=== PATIENT | female | born 1950 | race Caucasian/White ===

== ENCOUNTER 2018-07-14 03:55 | Inpatient (IN) | payer MEDICARE, OTHER ==
[2018-07-14] VITALS (7 sets, daily range): BP systolic 107–143; BP diastolic 59–86
[~2018-07-14] VITALS: Ht 175.3 cm; Wt 71.6 kg
[2018-07-14] MEDS ORDERED: ALBU18HF2 INH (04:18)
[2018-07-14] MEDS ORDERED: AMOX-580 PO (04:18)
[2018-07-14 04:29] LABS: BASOPHILS # (AUTO) 0.1 X10'3 (0-0.2); BASOPHILS % (AUTO) 0.7 % (0-1); EOSINOPHILS # (AUTO) 0.2 X10'3 (0-0.9); EOSINOPHILS % (AUTO) 1.5 % (0-6); HEMATOCRIT 45.3 % (35.0-45.0); HEMOGLOBIN 15.7 g/dl (12.0-16.0); LYMPHOCYTES # (AUTO) 1.5 X10'3 (1.1-4.8); LYMPHOCYTES % (AUTO) 14.9 % (21-51); MEAN CORPUSCULAR HEMOGLOBIN 29.5 PG (27.0-31.0); MEAN CORPUSCULAR HGB CONC 34.7 % (33.0-36.5); MEAN CORPUSCULAR VOLUME 84.9 FL (78-98); MEAN PLATELET VOLUME 12.2 FL (7.4-10.4); MONOCYTES # (AUTO) 0.5 X10'3 (0-0.9); MONOCYTES % (AUTO) 4.5 % (2-12); NEUTROPHILS # (AUTO) 8.1 X10'3 (1.8-7.7); NEUTROPHILS % (AUTO) 78.4 % (42-75); PLATELET COUNT 201 X10'3 (140-440); RED BLOOD COUNT 5.33 X10'6 (4.20-5.60); RED CELL DISTRIBUTION WIDTH 13.1 % (11.5-14.5); WHITE BLOOD COUNT 10.3 X10'3 (4.5-11.0)
[2018-07-14 04:49] LABS: LARGE PLATELETS FEW
[2018-07-14 04:58] LABS: PLATELET ESTIMATE NORMAL
[2018-07-14 05:25] LABS: ALANINE AMINOTRANSFERASE 40 U/L (12-78); ALBUMIN 3.8 G/DL (3.4-5.0); ALBUMIN/GLOBULIN RATIO 1.1 (1.1-1.5); ALKALINE PHOSPHATASE 80 IU/L (46-116); ANION GAP 12 (8-16); ASPARTATE AMINO TRANSFERASE 18 U/L (10-37); BILIRUBIN,TOTAL 0.8 MG/DL (0.1-1.0); BLOOD UREA NITROGEN 20 MG/DL (7-18); BUN/CREATININE RATIO 18.9 (6.6-38.0); CALCIUM 8.9 MG/DL (8.5-10.1); CHLORIDE 99 MMOL/L (99-107); CREATININE 1.06 MG/DL (0.40-0.90); GLUCOSE 422 MG/DL (70-104); SODIUM 136 MMOL/L (135-145); TOTAL CARBON DIOXIDE 25.2 MMOL/L (24-32); TOTAL PROTEIN 7.2 G/DL (6.4-8.2); eGFR 52 ML/MIN
[2018-07-14] MEDS ORDERED: levoFLOXACIN 750MG TABLET PO ONE (05:45)
[2018-07-14] MEDS ORDERED: normal saline 1000ML IV soln IV ONE (06:00)
[2018-07-14] MEDS ORDERED: CefTRIAXone 2gm/D5W 50ml 50 ML IV ONE (06:00)
[2018-07-14] MEDS ORDERED: hydrALAZINE 20mg/ml inj. IV ONE (06:00)
[2018-07-14] MEDS ORDERED: levoFLOXACIN-Levaquin 750MG/D5 150 ML IV ONE (06:00)
[2018-07-14] MEDS ORDERED: insulin regular, human 10 units/0.1 ml syringe IV ONE (06:00)
[2018-07-14 06:35] LABS: HEMOGLOBIN A1C 10.3 % (4.5-6.2)
[2018-07-14] MEDS ORDERED: magnesium 4gm in 100ml NS 100 ML IV PRN (07:50)
[2018-07-14] MEDS ORDERED: dextrose ORAL solution 15 GM/59 ML bottle PO PRN ×2 (07:50)
[2018-07-14] MEDS ORDERED: potassium Cl 20 mEq SR tablet PO PRN (07:50)
[2018-07-14] MEDS ORDERED: MESSAGE TO PHARMACY PO ONE (07:50)
[2018-07-14] MEDS ORDERED: dextrose 50%-water 50ml dispensing syringe IV PRN ×2 (07:50)
[2018-07-14] MEDS ORDERED: acetaminophen 325mg tablet PO PRN ×2 (07:50)
[2018-07-14] MEDS ORDERED: potassium Cl 40MEQ/NS 500ml 500 ML IV PRN ×2 (07:50)
[2018-07-14] MEDS ORDERED: magnesium 1gm/100ml D5W IVPB 100 ML IV PRN (07:50)
[2018-07-14] MEDS ORDERED: glucagon, human recombinant 1mg kit SUBCUT PRN (07:50)
[2018-07-14] MEDS ORDERED: mag hydrox/Alum hydrox/simeth 30ml oral suspension PO PRN (07:50)
[2018-07-14] MEDS ORDERED: magnesium hydroxide 30ml (MOM) UD suspension PO PRN (07:50)
[2018-07-14] MEDS ORDERED: magnesium Cl slow-release 64mg tablet PO PRN (07:50)
[2018-07-14] MEDS: K and/or MAG REPLACEMENT MC SCH (08:00)
[2018-07-14] MEDS ORDERED: furosemide 40mg/4ml inj IV SCH (08:00)
[2018-07-14 08:30] LABS: PARTIAL THROMBOPLASTIN TIME 22 SECONDS (22-32); PROTHROMBIN TIME 10.1 SECONDS (9.0-12.0)
[2018-07-14 08:30] LABS: CLARITY,URINE CLEAR (Clear); COLOR,URINE STRAW (Yellow); GLUCOSE, URINE >=1000 mg/dl (Neg); KETONES,URINE 40 mg/dl (Neg); LEUKOCYTE ESTERASE ,URINE NEGATIVE (Neg); NITRITES, URINE NEGATIVE (Neg); OCCULT BLOOD,URINE NEGATIVE (Neg); PROTEIN,URINE NEGATIVE (Neg); UROBILINOGEN,URINE 0.2 E.U/dL (0.2-1.0)
[2018-07-14 08:31] LABS: UA COLLECTION TYPE CLN CATCH MIDSTREAM
[2018-07-14] MEDS: diltiazem 30mg tablet PO SCH ×3 (08:32→19:40)
[2018-07-14] MEDS: enoxaparin 40mg/0.4ml syringe SUBCUT SCH (08:33)
[2018-07-14 08:34] LABS: PHOSPHORUS 3.9 MG/DL (2.3-4.5)
[2018-07-14 08:34] LABS: URINE AMPHETAMINE SCREEN NEGATIVE (Neg); URINE BARBITUATE SCREEN NEGATIVE (Neg); URINE BENZODIAZEPINES SCREEN NEGATIVE (Neg); URINE CANNABINOID SCREEN NEGATIVE (Neg); URINE COCAINE SCREEN NEGATIVE (Neg); URINE METHADONE SCREEN NEGATIVE (Neg); URINE OPIATE SCREEN NEGATIVE (Neg); URINE PHENCYCLIDINE SCREEN NEGATIVE (Neg)
[2018-07-14 08:35] LABS: RBC,URINE NONE SEEN /HPF (0-2)
[2018-07-14 08:36] LABS: BACTERIA,URINE FEW /HPF (Neg); SQUAMOUS EPITHELIAL CELL,UR MODERATE /LPF (FEW)
[2018-07-14] MEDS: ondansetron/PF 4mg/2ml inj IV PRN (09:35)
[2018-07-14] MEDS: insulin Lispro (HumaLOG) vial - multi-dose SQ SCH ×2 (13:54→19:32)
[2018-07-14] MEDS: furosemide 40mg/4ml inj IV SCH (15:20)
[2018-07-14] MEDS ORDERED: temazepam 15mg capsule PO PRN (21:00)
[2018-07-14] MEDS: insulin glargine (Lantus) pen - multi-dose SQ SCH (21:35)
[2018-07-15] VITALS (13 sets, daily range): BP systolic 112–147; BP diastolic 62–80
[2018-07-15] MEDS: diltiazem 30mg tablet PO SCH ×4 (03:05→20:20)
[2018-07-15 05:50] LABS: HEMATOCRIT 37.8 % (35.0-45.0); MEAN CORPUSCULAR HEMOGLOBIN 29.4 PG (27.0-31.0); MEAN CORPUSCULAR HGB CONC 34.5 % (33.0-36.5); MEAN CORPUSCULAR VOLUME 85.2 FL (78-98); MEAN PLATELET VOLUME 11.8 FL (7.4-10.4); PLATELET COUNT 175 X10'3 (140-440); RED BLOOD COUNT 4.44 X10'6 (4.20-5.60); RED CELL DISTRIBUTION WIDTH 13.5 % (11.5-14.5); WHITE BLOOD COUNT 8.6 X10'3 (4.5-11.0)
[2018-07-15 06:04] LABS: PARTIAL THROMBOPLASTIN TIME 23 SECONDS (22-32); PROTHROMBIN TIME 10.7 SECONDS (9.0-12.0)
[2018-07-15 06:17] LABS: ALBUMIN 2.9 G/DL (3.4-5.0); ANION GAP 9 (8-16); BLOOD UREA NITROGEN 27 MG/DL (7-18); BUN/CREATININE RATIO 25.5 (6.6-38.0); CALCIUM 8.4 MG/DL (8.5-10.1); CHLORIDE 102 MMOL/L (99-107); CHOL/HDL RATIO 5.3 (0.00-4.99); CHOLESTEROL 228 MG/DL (0-200); CREATININE 1.06 MG/DL (0.40-0.90); GLUCOSE 230 MG/DL (70-104); HDL CHOLESTEROL 43 MG/DL (35-60); LDL CHOLESTEROL 165 MG/DL (50-100); MAGNESIUM 1.8 MG/DL (1.5-2.4); PHOSPHORUS 4.3 MG/DL (2.3-4.5); POTASSIUM 3.3 MMOL/L (3.5-5.1); SODIUM 137 MMOL/L (135-145); TOTAL CARBON DIOXIDE 26.1 MMOL/L (24-32); TRIGLYCERIDES 148 MG/DL (20-135); eGFR 52 ML/MIN
[2018-07-15] MEDS: K and/or MAG REPLACEMENT MC SCH (08:00)
[2018-07-15] MEDS: furosemide 40mg/4ml inj IV SCH ×2 (08:11→20:20)
[2018-07-15] MEDS: enoxaparin 40mg/0.4ml syringe SUBCUT SCH (08:12)
[2018-07-15] MEDS: potassium Cl 20 mEq SR tablet PO PRN ×2 (08:15→21:29)
[2018-07-15] MEDS: CefTRIAXone/D5W-Rocephin 1gm 50 ML IV SCH (08:17)
[2018-07-15] MEDS: insulin Lispro (HumaLOG) vial - multi-dose SQ SCH ×2 (08:53→18:57)
[2018-07-15] MEDS ORDERED: nitroGLYCERIN 0.4mg SUBLingual tab SL PRN (10:40)
[2018-07-15] MEDS ORDERED: CAFFEINE CITRATE 60 MG/3 ML injection vial IV PRN (10:40)
[2018-07-15] MEDS ORDERED: metoprolol tartrate 1mg/ml inj IV PRN (10:40)
[2018-07-15] MEDS ORDERED: regadenoson 0.4mg/5ml syringe IV ONE ×2 (10:40→13:19)
[2018-07-15] MEDS ORDERED: levoFLOXACIN 500mg tablet PO SCH (11:00)
[2018-07-15] MEDS ORDERED: CAFFEINE CITRATE 60 MG/3 ML injection vial IV ONE (13:19)
[2018-07-15] MEDS ORDERED: ondansetron/PF 4mg/2ml inj ONE ×2 (13:31→13:36)
[2018-07-15] MEDS: ondansetron/PF 4mg/2ml inj IV PRN (13:37)
[2018-07-15] MEDS ORDERED: proCHLORperazine 10 MG/2 ml inj IV PRN (15:15)
[2018-07-15] MEDS: insulin glargine (Lantus) pen - multi-dose SQ SCH (21:26)
[2018-07-16] MEDS: diltiazem 30mg tablet PO SCH ×2 (02:12→08:22)
[2018-07-16] MEDS: potassium Cl 20 mEq SR tablet PO PRN ×2 (02:13→08:22)
[2018-07-16 03:00] VITALS: BP 120/70
[2018-07-16 06:00] VITALS: BP 128/75
[2018-07-16 06:22] LABS: HEMATOCRIT 38.2 % (35.0-45.0); HEMOGLOBIN 13.2 g/dl (12.0-16.0); MEAN CORPUSCULAR HEMOGLOBIN 29.7 PG (27.0-31.0); MEAN CORPUSCULAR HGB CONC 34.6 % (33.0-36.5); MEAN CORPUSCULAR VOLUME 86.1 FL (78-98); MEAN PLATELET VOLUME 11.7 FL (7.4-10.4); PLATELET COUNT 168 X10'3 (140-440); RED BLOOD COUNT 4.44 X10'6 (4.20-5.60); RED CELL DISTRIBUTION WIDTH 13.2 % (11.5-14.5); WHITE BLOOD COUNT 7.2 X10'3 (4.5-11.0)
[2018-07-16 06:31] LABS: PARTIAL THROMBOPLASTIN TIME 24 SECONDS (22-32); PROTHROMBIN TIME 10.4 SECONDS (9.0-12.0)
[2018-07-16 06:41] LABS: ANION GAP 9 (8-16); BLOOD UREA NITROGEN 26 MG/DL (7-18); BUN/CREATININE RATIO 25.7 (6.6-38.0); CALCIUM 8.4 MG/DL (8.5-10.1); CHLORIDE 101 MMOL/L (99-107); CREATININE 1.01 MG/DL (0.40-0.90); GLUCOSE 138 MG/DL (70-104); MAGNESIUM 1.7 MG/DL (1.5-2.4); PHOSPHORUS 4.2 MG/DL (2.3-4.5); POTASSIUM 3.3 MMOL/L (3.5-5.1); SODIUM 138 MMOL/L (135-145); TOTAL CARBON DIOXIDE 27.8 MMOL/L (24-32); eGFR 55 ML/MIN
[2018-07-16] MEDS: K and/or MAG REPLACEMENT MC SCH (08:00)
[2018-07-16] MEDS ORDERED: lactobacillus rhamnosus 10,000 MMU CELLS/CAPSULE PO SCH (08:00)
[2018-07-16] MEDS: CefTRIAXone/D5W-Rocephin 1gm 50 ML IV SCH (08:19)
[2018-07-16] MEDS: furosemide 40mg/4ml inj IV SCH (08:21)
[2018-07-16] MEDS: enoxaparin 40mg/0.4ml syringe SUBCUT SCH (08:22)
[2018-07-16] MEDS: insulin Lispro (HumaLOG) vial - multi-dose SQ SCH ×2 (08:37→14:06)
[2018-07-16 08:41] LABS: LARGE PLATELETS FEW; PLATELET ESTIMATE NORMAL
[2018-07-16] MEDS ORDERED: LEVO500T89 PO (11:33)
[2018-07-16] MEDS ORDERED: DILT30TA5 PO (11:33)
[2018-07-16] MEDS ORDERED: METF500T PO (11:35)
[2018-07-16] MEDS ORDERED: BLOO1EAC70 MC (11:36)
[2018-07-16] MEDS ORDERED: FURO-150 PO (11:38)
[2018-07-16] MEDS ORDERED: POTA10TA36 PO (11:40)
== END 2018-07-16 16:05 | disposition home or self-care (01) | DRG 291 ==
LOC: ER 03:55 → ED HOLD 07:49 → PCU 3S 09:51
PROVIDERS: ADMIT Family Medicine; ATTEND Internal Medicine
PROC: 4A02XM4 Measurement of Cardiac Total Activity, External Approach (ICD-10-PCS; principal; 2018-07-15)
PROC: 3E033HZ Introduction of Radioactive Substance into Peripheral Vein, Percutaneous Approach (ICD-10-PCS; 2018-07-15)
DX: I11.0 Hypertensive heart disease with heart failure (principal); J18.9 Pneumonia, unspecified organism; J96.01 Acute respiratory failure with hypoxia; I50.33 Acute on chronic diastolic (congestive) heart failure; I16.0 Hypertensive urgency; J20.9 Acute bronchitis, unspecified; E11.9 Type 2 diabetes mellitus without complications; I34.0 Nonrheumatic mitral (valve) insufficiency; R00.0 Tachycardia, unspecified; Z90.49 Acquired absence of other specified parts of digestive tract; Z82.49 Family history of ischemic heart disease and other diseases of the circulatory system; Z83.3 Family history of diabetes mellitus
CPT/HCPCS: 36415; 71045; 78452; 80048; 80053; 80061; 80305; 81001; 82948; 83036; 83605; 83735; 83880; 84100; 84145; 84439; 84443; 84484; 85025; 85027; 85379; 85610; 85730; 87040; 87070; 87088; 93005; 93017; 93306; 96365; 96367; 96375; 99285; A9500; J0360; J0696; J0780; J1650; J1815; J1940; J1956; J2405; J7030

== ENCOUNTER 2018-09-03 11:19 | Emergency (ER) | payer MEDICARE, OTHER ==
[~2018-09-03] VITALS: Ht 165.1 cm; Wt 59.5 kg
[~2018-09-03 11:19] MED LIST: ALBU18HF2 INH; BLOO1EAC70 MC; DILT30TA5 PO; FURO-150 PO; LEVO500T89 PO; POTA10TA36 PO
[2018-09-03 12:11] LABS: BASOPHILS % (AUTO) 0.4 % (0-1); EOSINOPHILS # (AUTO) 0.1 X10'3 (0-0.9); EOSINOPHILS % (AUTO) 1.6 % (0-6); HEMATOCRIT 39.7 % (35.0-45.0); HEMOGLOBIN 13.4 g/dl (12.0-16.0); LYMPHOCYTES # (AUTO) 1.8 X10'3 (1.1-4.8); LYMPHOCYTES % (AUTO) 24.4 % (21-51); MEAN CORPUSCULAR HEMOGLOBIN 28.8 PG (27.0-31.0); MEAN CORPUSCULAR HGB CONC 33.7 % (33.0-36.5); MEAN CORPUSCULAR VOLUME 85.4 FL (78-98); MEAN PLATELET VOLUME 11.5 FL (7.4-10.4); MONOCYTES # (AUTO) 0.5 X10'3 (0-0.9); MONOCYTES % (AUTO) 6.7 % (2-12); NEUTROPHILS % (AUTO) 66.9 % (42-75); PLATELET COUNT 217 X10'3 (140-440); RED BLOOD COUNT 4.64 X10'6 (4.20-5.60); RED CELL DISTRIBUTION WIDTH 13.3 % (11.5-14.5); WHITE BLOOD COUNT 7.4 X10'3 (4.5-11.0)
[2018-09-03 12:24] LABS: D-DIMER 0.44 MG/L FEU (0-0.50)
[2018-09-03 12:27] LABS: ALANINE AMINOTRANSFERASE 24 U/L (12-78); ALBUMIN 3.5 G/DL (3.4-5.0); ALBUMIN/GLOBULIN RATIO 1.1 (1.1-1.5); ALKALINE PHOSPHATASE 66 IU/L (46-116); ANION GAP 8 (8-16); ASPARTATE AMINO TRANSFERASE 14 U/L (10-37); BILIRUBIN,TOTAL 0.8 MG/DL (0.1-1.0); BLOOD UREA NITROGEN 19 MG/DL (7-18); BUN/CREATININE RATIO 20.7 (6.6-38.0); CHLORIDE 101 MMOL/L (99-107); CREATININE 0.92 MG/DL (0.40-0.90); GLUCOSE 252 MG/DL (70-104); POTASSIUM 3.9 MMOL/L (3.5-5.1); SODIUM 138 MMOL/L (135-145); TOTAL CARBON DIOXIDE 28.9 MMOL/L (24-32); TOTAL PROTEIN 6.8 G/DL (6.4-8.2); eGFR 61 ML/MIN
[2018-09-03 12:30] LABS: GIANT PLATELET FEW; LARGE PLATELETS FEW; PLATELET ESTIMATE NORMAL
[2018-09-03] MEDS ORDERED: diltiazem 30mg tablet PO ONE (12:55)
[2018-09-03] MEDS ORDERED: furosemide 10 MG/1 ML 10ml inj IV ONE (12:55)
[2018-09-03] MEDS ORDERED: DILT180C95 PO (13:42)
[2018-09-03] MEDS ORDERED: FURO40TA4 PO (13:42)
[2018-09-03] MEDS ORDERED: LISI10TA4 PO (13:42)
[2018-09-03] MEDS ORDERED: POTA20TA19 PO (13:42)
[2018-09-03 13:56] VITALS: BP 145/106
== END 2018-09-03 14:15 | disposition home or self-care (01) ==
LOC: ER 11:20
DX: I11.0 Hypertensive heart disease with heart failure (principal); I50.9 Heart failure, unspecified; R05 Cough; R06.02 Shortness of breath; R00.0 Tachycardia, unspecified; Z79.899 Other long term (current) drug therapy; Z79.2 Long term (current) use of antibiotics
CPT/HCPCS: 36415; 71046; 80053; 83605; 83880; 84145; 85025; 85379; 87040; 93005; 96374; 99285; J1940